=== PATIENT | male | born 1995 | race Caucasian/White ===

== ENCOUNTER 2021-09-13 00:11 | Emergency (ER) | payer BC | END 2021-09-13 01:29 | disposition home or self-care (01) | LOC: MW.ED 00:11 | DX: R42 Dizziness and giddiness (principal); I10 Essential (primary) hypertension; Z79.899 Other long term (current) drug therapy; Z88.2 Allergy status to sulfonamides; Z88.5 Allergy status to narcotic agent; Z88.8 Allergy status to other drugs, medicaments and biological substances | CPT/HCPCS: 71045; 71045-26; 93005; 99284-25 ==